=== PATIENT | female | born 1980 ===

== ENCOUNTER 2017-05-29 06:43 | Inpatient (IN) | payer BC, OTHER ==
[2017-05-25 14:21] VITALS: BMI 27.7
[2017-05-29] MEDS ORDERED: Lidocaine 4% (Laryng-O-Jet) Kit MM ONE (07:26)
[2017-05-29] MEDS ORDERED: Rocuronium 10 mg/ml (5 ml) ONE (07:26)
[2017-05-29] MEDS ORDERED: Midazolam 2 MG/2 ML VIAL ONE (07:26)
[2017-05-29] MEDS ORDERED: Propofol 10 mg/ml Inj (20 ML) ONE (07:26)
[2017-05-29] MEDS ORDERED: Succinylcholine 200 mg/10 ml Inj IV ONE (07:26)
[2017-05-29] MEDS ORDERED: ePHEDrine 50 mg/ml Inj ONE (07:26)
[2017-05-29] MEDS ORDERED: ceFAZolin IV 1 gm in Dextrose 1 GM/50 ML BAG IVPB ONE (07:29)
[2017-05-29] MEDS ORDERED: ceFAZolin IV 1 gm in Dextrose 0 GM/0 ML BAG IVPB ONE (07:29)
[2017-05-29] MEDS ORDERED: Lidocaine 2% Inj (20ml) ONE (07:30)
[2017-05-29] MEDS ORDERED: SENSORCAINE 0.5% W/EPINEPHRINE 50ML MDV IJ ONE (07:38)
[2017-05-29 07:41] LABS: HEMATOCRIT 42.1 % (34.0-47.0); MEAN CELL VOLUME 84.5 fl (81.0-99.0); MEAN CORPUSCULAR HEMOGLOBIN 27.8 pg (27.0-31.0); MEAN CORPUSCULAR HGB CONC 32.9 g/dL (33.0-37.0); RED CELL DISTRIBUTION WIDTH 13.7 % (11.5-14.5); WHITE BLOOD COUNT 7.1 K/uL (4.8-10.8)
[2017-05-29] MEDS ORDERED: Vasopressin 20 Units/ml Inj ONE (07:44)
[2017-05-29] MEDS ORDERED: Lactated Ringer's 1,000 ML IV ONE ×2 (08:05→08:15)
[2017-05-29] MEDS ORDERED: Methylene Blue 10 mg/mL(10ml) IV ONE (08:36)
[2017-05-29] MEDS ORDERED: Dexamethasone 4 mg/1 ml ONE (08:39)
[2017-05-29] MEDS ORDERED: Desflurane Inhalation Anesthetic Liq (240 ml) ONE (08:46)
[2017-05-29] MEDS ORDERED: HEMOSTATIC MATRIX 10 ML DIS.NEEDLE TOP ONE (09:10)
[2017-05-29] MEDS ORDERED: HYDROmorphone 0.5 mg/0.5 ml ISec IVP PRN (11:33)
--- NOTE | 2017-05-29 11:42 | PCM.SURG1 ---
Surgeon's Initial Post Op Note - Surgeon's Notes Surgeon: gilma salinas md Fish Cake Maker: ofelia garcia md, roderick MCKEON Type of Anesthesia: General Endo, Local Anesthesia Administered By: Rosa Carrasco MD Pre-Operative Diagnosis: masive fibroid uterus. abnormal uterine bleeding. chronic pelvic pain. infertility. right ovarian cyst Operative Findings: enlarged fibroid uterus approx 18 weeks size. multiple myomas. large ovarian cyst right approx 9 cm in diameter. normal bladder anatomy as per cystocopy Post-Operative Diagnosis: masive fibroid uterus. abnormal uterine bleeding. chronic pelvic pain. infertility. right ovarian cyst Operation Performed: Robotic myomectomy >5 myomas. Lysis of adhessions Enterolysis. Large right ovarian cyst. laparotomy for myomas extraction Specimen/Specimens Removed: myomas. right ovarian cyst Estimated Blood Loss: EBL {In ML}: 20 Blood Products Given: N/A Drains Used: No Drains Post-Op Condition: Good Date of Surgery/Procedure: 05/29/17 Time of Surgery/Procedure: 11:43
[2017-05-29] MEDS ORDERED: ceFAZolin IV 1 gm in Dextrose 1 GM/50 ML BAG IVPB SCH (11:45)
[2017-05-29] MEDS ORDERED: Lactated Ringer's 1,000 ML IV SCH (11:45)
--- NOTE | 2017-05-29 11:49 | PCM.OP ---
Operative Report - Operative Report Date of Surgery/Procedure: 05/29/17 Time of Surgery/Procedure: 11:44 Surgeon: Stewart Gonzalez MD Prosthodontist: Ralph Montenegro MD, Carmen MCKEON Anesthesia/Sedation: General with ET Tube with local Pre-Operative Diagnosis: Symptomatic fibroid uterus. Abnormal Uterine bleeding. Chronic pelvic pain. Right ovarian cyst. Infertility Post-Operative Diagnosis: Symptomatic fibroid uterus. Abnormal Uterine bleeding. Chronic pelvic pain. Right ovarian cyst. Infertility. Intraabdominal adhessions Indication for Surgery: Worsening enlarged fibroid uterus. Long standing infertility. Abnormal uterine bleeding Operative Findings: massive size fibroid uterus approx 18 weeks size. large right ovarian cyst. Extensive intrapelvic adhessions Procedure/Operation Description: Robotic assisted myomectomy >5 myomas. Extensive lysis of adhessions Enterolysis. Right ovarian cystectomy. Laparotomy. Diagnostic cystoscopy. . Detailed operative report. Detailed Operative Report. This is a 36 years old female with massively enlarged fibroid uterus, abnormal uterine bleeding, chronic pelvic pain and long -standing infertility. The patient completed an extensive preoperative workup, which included an ultrasound, as well as a Pap smear and chemistry and hematology studies. A decision was finally made to proceed with a robotic assisted myomectomy. A detailed description of this robotic procedure was given to the patient, all risks and benefits of the surgical modality was reviewed, printed material was also given to the patient regarding robotic surgery. The patient fully understood all the risks and benefits and elected to proceed with this proposed procedure. After proper consent was obtained from the patient was taken to the operating room, proper patient identification was completed. She was placed in dorsal lithotomy position; general anesthesia was induced without difficulty. Her legs were placed in adjustable Junito stirrups. Careful attention was placed not to over-flex or over-rotate the lower extremities at the hip or the knee joints. She was prepped and draped appropriately for robotic assisted myomectomy. Saravia catheter was inserted under sterile conditions. A weighted speculum was placed in the vagina, anterior lip of cervix was grasped with a tenaculum, and a V-care uterine manipulator was inserted through the cervix and secured. A weighted speculum and tenaculum were removed from the patient's vagina and attention was turned to the patient's abdomen. Local anesthetic solutions of 0.25% Marcaine with epinephrine were utilized to infiltrate the skin prior to all abdominal skin incisions. A total of 15 mL of 0.25% Marcaine was utilized throughout the procedure. While tenting the abdominal wall, a Veres needle was inserted through the umbilicus and a pneumoperitoneum was obtained. Approximately 4 cm above the umbilicus in the midline, a 1 cm incision was made with a scalpel and a trocar and sleeve were introduced. A robotic camera was inserted and an initial survey of the patient's abdomen revealed a massively enlarged bulky fibroid uterus approximately 18 weeks in size, extensive bowel adhesions as well as peritoneal adhesions, and enlarged right ovary with a complex appearing cyst. Left ovary appeared normal with normal fallopian tubes. The patient was placed in Trendelenburg position ready for a da Ira robotic system to be docked. 3 robotic ports were utilized for this procedure. The first robotic port was placed on the patient's right side approximately 5 cm above the right superior iliac crest where a small skin incision approximately 8 mm was made. The second robotic port was in the patient's left side approximately 5 cm superior to the left superior iliac crest. A third robotic port was inserted approximately 7 cm right lateral of the camera port. A small incision approximately 1 cm was made 9 cm left lateral to the camera port and an wet process assistant head miller port was inserted. All robotic ports were approximately 8 mm in size , the wet process assistant head miller and the camera ports were 1 cm in size. For the wet process assistant head miller and camera ports we utilized the Versa-step trocar system. All trocars were inserted under direct visualization. The placement of the trocars was all accomplished under careful and meticulous placement under direct visualization. Following the placement of all trocars, the da Ira robotic system was docked in a parallel method without difficulty. The following instruments were utilized for this procedure: the PK sealing device, a monopolar vlad and finally a ProGrasp. Prior to the start of the myomectomy, both ureters and their courses were visualized, peristalsing without difficulty. Dilute pitrecin solution was used to inject the capsule of all myomas and incision to aid in hemostasis. A total of 40 unites diluted in saline was used to inject with a spinal needle. Multiple incisions over the anterior and posterior uterine wall as well over the uterine fundus were made and the myomas were enucleated using sharp and blunt dissection. A total of > 5 myomas were enucleated this fashion and placed in the posterior cul-de-sac for later extraction. The incisions were closed in an interrupted fashion using 2-0 and 3 -0 sutures V lock with great hemostasis. The serosa was closed in baseball fashion with great hemostasis. Sharp and blunt dissection in a meticulous fashion was utilized to enucleate the right ovarian cyst, it was extracted from the patients abdomen and sent to pathology labeled appropriately. Extraction of the myomas which were placed in the posterior cul-de-sac was accomplished utilizing a Pfannenstiel incision at the end of the procedure. Pfannenstiel incision was made with scalpel and carried down to the level of the rectus fascia. The fascia was incised in the midline and incision was extended. The peritoneal cavity was entered bluntly and incision was extended. All myomas that were enucleated extracted from the abdominal cavity and sent to pathology labeled appropriately. The peritoneum was closed with 2-0 Vicryl in a continuous fashion. The fascia was closed with 0 Vicryl in a continuous fashion. The skin was closed with 4-0 Monocryl in subcutaneous fashion. The abdomen was throughout irrigated and cleared of all clots and debris. FloSeal as well as Intercede was applied to the incision sites. Excellent hemostasis was again noted. All robotic and laparoscopic instruments removed under direct visualization. The robotic arms were undocked, and a da Ira robotic system was wheeled away from the patient's bedside. Both wet process assistant head miller and camera ports were closed at the fascial layer utilizing a 2-0 Vicryl suture serial in interrupted fashion. Pneumoperitoneum was reduced and all skin incisions were closed utilizing 4-0 Monocryl in a subcutaneous fashion. Dermabond was applied to all incisions. Due to the complexity of this myomectomy, the distorted pelvic anatomy, a diagnostic cystoscopy was completed. The Saravia catheter was removed; the bladder was distended with approximately 350 cc of normal saline. A 30 cystoscope was introduced and a survey of the bladder anatomy was completed. The base, and the dome of the bladder appeared normal, both ureteral orifices appeared normal and were efluxing urine freely. The urethra appeared normal. A Saravia catheter was reinserted. Patient emerged from general anesthesia without difficulty, and was taken to recovery room in stable condition. Prior to incision the patient received antibiotics, prior to closure sponge lap and needle counts were correct x2. Estimated Blood Loss: 20 Blood Replaced: none Sponge/Instrument Count: correct times 2 Drains: none Complications: none Specimen: myomas. right ovarian cyst Discharge & Condition: stable condition to the PACU and will stay overnight
[2017-05-29] MEDS: ceFAZolin IV 1 gm in Dextrose 1 GM/50 ML BAG IVPB SCH ×2 (16:16→23:33)
[2017-05-29] MEDS: Oxycodone/Acetaminophen 5/325 mg Tab PO PRN ×2 (16:53→21:09)
[2017-05-29 17:35] LABS: HEMATOCRIT 36.8 % (34.0-47.0)
[2017-05-29] MEDS: Sodium Chloride 0.9% 1,000 ML IV SCH (23:32)
[2017-05-30 00:21] VITALS: RESP 20
[2017-05-30 05:23] VITALS: O2SAT 97
[2017-05-30] MEDS: Sodium Chloride 0.9% 1,000 ML IV SCH (06:43)
[2017-05-30 06:52] LABS: HEMATOCRIT 36.5 % (34.0-47.0); MEAN CELL VOLUME 84.7 fl (81.0-99.0); MEAN CORPUSCULAR HEMOGLOBIN 27.2 pg (27.0-31.0); MEAN CORPUSCULAR HGB CONC 32.2 g/dL (33.0-37.0); RED CELL DISTRIBUTION WIDTH 13.7 % (11.5-14.5); WHITE BLOOD COUNT 14.1 K/uL (4.8-10.8)
[2017-05-30 07:05] LABS: BLOOD UREA NITROGEN 7 mg/dl (7-17); CALCIUM 8.3 mg/dL (8.4-10.2); CARBON DIOXIDE 25 mmol/L (22-30); CHLORIDE 103 mmol/L (98-107); GFR AFRICAN-AMERICAN > 60; GLUCOSE,RANDOM 98 mg/dL (65-105); POTASSIUM 4.3 MMOL/L (3.6-5.0); SODIUM 134 mmol/l (132-148)
[2017-05-30] MEDS: ceFAZolin IV 1 gm in Dextrose 1 GM/50 ML BAG IVPB SCH (08:31)
[2017-05-30 08:40] VITALS: BP 95/55; PULSE 77; TEMP 98.4
--- NOTE | 2017-05-30 12:23 | CP.PCM.PN ---
Subjective - Date & Time of Evaluation Date of Evaluation: 05/30/17 Time of Evaluation: 12:20 - Subjective Subjective: F/u Dr. Gonzalez Patient states that pain is improving, she has been out of bed and voided. No passing gas yet. Encouraged PO fluids and OOB. Objective - Vital Signs/Intake and Output Vital Signs (last 24 hours): Temp Pulse Resp BP Pulse Ox 98.4 F 77 20 95/55 L 97 05/30/17 08:15 05/30/17 08:15 05/30/17 08:15 05/30/17 08:15 05/30/17 05:00 Intake and Output: 05/30/17 05/30/17 06:59 18:59 Intake Total 2320 Output Total 1900 Balance 420 - Medications Medications: Current Medications Hydromorphone HCl (Dilaudid) 2 mg IVP Q3 PRN PRN Reason: Pain, severe (8-10) Last Admin: 05/29/17 23:43 Dose: 2 mg Lactated Ringer's (Lactated Ringer's) 1,000 mls @ 125 mls/hr IV .Q8H [facility] Last Admin: 05/29/17 12:15 Dose: 200 mls Sodium Chloride (Sodium Chloride 0.9%) 1,000 mls @ 100 mls/hr IV .Q10H [facility] Last Admin: 05/30/17 06:43 Dose: 100 mls/hr Ketorolac Tromethamine (Toradol) 30 mg IVP Q6 PRN PRN Reason: Pain, Mild (1-3) Last Admin: 05/30/17 09:36 Dose: 30 mg Oxycodone/Acetaminophen (Percocet 5/325 Mg Tab) 2 tab PO Q4 PRN PRN Reason: Pain, moderate (4-7) Stop: 06/01/17 11:34 Last Admin: 05/29/17 21:09 Dose: 2 tab - Labs Labs: 05/30/17 06:45 05/30/17 06:45 - GI/Abdominal Exam GI & Abdominal Exam: Distended, Soft, Tenderness Additional comments: Incisions clean/dry/intact. No erythema. Abd soft. Patient comfortable. Assessment and Plan (1) Fibroid uterus Assessment & Plan: POD#1 s/p robotic assisted myomectomy, ovarian cystectomy, lysis of adhesions, cysto -pain controlled, d/c home -rx percocet -[place] [employer] TECHNICIAN patient report reviewed, no CDS. Patient counseled on the risks of addiction, physical or psychological dependence, and overdose associated with opioid drugs and the danger of taking opioid drugs with alcohol and other central nervous system depressants, and cautioned patient on storage and disposal. -f/u Dr. Gonzalez 2 weeks, call for appointment Status: Acute (2) Abnormal uterine bleeding Status: Acute (3) Chronic pelvic pain in female Status: Acute (4) Right ovarian cyst Status: Acute (5) Infertility Status: Acute (6) Intra-abdominal adhesions Status: Acute
--- NOTE | 2017-05-30 12:33 | CP.PCM.DIS ---
Provider - Provider Date of Admission: 05/29/17 11:33 Attending physician: Stewart Gonzalez MD Primary care physician: Stewart Gonzalez MD Time Spent in preparation of Discharge (in minutes): 5 Diagnosis - Discharge Diagnosis (1) Fibroid uterus Status: Acute (2) Abnormal uterine bleeding Status: Acute (3) Chronic pelvic pain in female Status: Acute (4) Right ovarian cyst Status: Acute (5) Infertility Status: Acute (6) Intra-abdominal adhesions Status: Acute Hospital Course - Lab Results Lab Results: Most Recent Lab Values WBC 14.1 K/uL (4.8-10.8) H D 05/30/17 06:45 RBC 4.30 Mil/uL (3.80-5.20) 05/30/17 06:45 Hgb 11.7 g/dL (12.0-16.0) L 05/30/17 06:45 Hct 36.5 % (34.0-47.0) 05/30/17 06:45 MCV 84.7 fl (81.0-99.0) 05/30/17 06:45 MCH 27.2 pg (27.0-31.0) 05/30/17 06:45 MCHC 32.2 g/dL (33.0-37.0) L 05/30/17 06:45 RDW 13.7 % (11.5-14.5) 05/30/17 06:45 Plt Count 220 K/uL (130-400) 05/30/17 06:45 Sodium 134 mmol/l (132-148) 05/30/17 06:45 Potassium 4.3 MMOL/L (3.6-5.0) 05/30/17 06:45 Chloride 103 mmol/L (98-107) 05/30/17 06:45 Carbon Dioxide 25 mmol/L (22-30) 05/30/17 06:45 Anion Gap 10 (10-20) 05/30/17 06:45 BUN 7 mg/dl (7-17) 05/30/17 06:45 Creatinine 0.7 mg/dl (0.7-1.2) 05/30/17 06:45 Est GFR ( Amer) > 60 05/30/17 06:45 Est GFR (Non-Af Amer) > 60 05/30/17 06:45 Random Glucose 98 mg/dL (65-105) 05/30/17 06:45 Calcium 8.3 mg/dL (8.4-10.2) L 05/30/17 06:45 Blood Type A POSITIVE 05/29/17 07:28 Blood Type Confirm A POSITIVE 05/29/17 10:11 Antibody Screen Negative 05/29/17 07:28 BBK History Checked No verified bt 05/29/17 07:28 - Hospital Course Hospital Course: uneventful post operative course s/p robotic assisted myomectomy, ovarian cystectomy, lysis of adhesions, cysto Discharge Plan - Discharge Medications Prescriptions: oxyCODONE/Acetaminophen [Percocet 5/325 mg Tab] 2 ea PO Q4H PRN #40 tab PRN Reason: Pain, Moderate (4-7) - Follow Up Plan Condition: GOOD Disposition: HOME/ ROUTINE Instructions: Pain Management After Surgery (DC), Myomectomy (DC) Referrals: Stewart Gonzalez MD [Primary Care Provider] -
== END 2017-05-30 14:20 | disposition home or self-care (01) | DRG 743 ==
LOC: H.OPSURG 06:43 → H.PEDS 11:33
PROVIDERS: ADMIT Obstetrics & Gynecology; ATTEND Obstetrics & Gynecology
PROC: 0UB04ZZ Excision of Right Ovary, Percutaneous Endoscopic Approach (ICD-10-PCS; 2017-05-29)
PROC: 0TJB8ZZ Inspection of Bladder, Via Natural or Artificial Opening Endoscopic (ICD-10-PCS; 2017-05-29)
PROC: 8E0W4CZ Robotic Assisted Procedure of Trunk Region, Percutaneous Endoscopic Approach (ICD-10-PCS; 2017-05-29)
PROC: 0UB90ZZ Excision of Uterus, Open Approach (ICD-10-PCS; principal; 2017-05-29 07:45)
PROC: 0DNW4ZZ Release Peritoneum, Percutaneous Endoscopic Approach (ICD-10-PCS; 2017-05-29 07:45)
DX: D25.9 Leiomyoma of uterus, unspecified (principal); G89.29 Other chronic pain; N83.201 Unspecified ovarian cyst, right side; K66.0 Peritoneal adhesions (postprocedural) (postinfection); N97.9 Female infertility, unspecified; Z91.013 Allergy to seafood